=== PATIENT | male | born 1970 | race Caucasian/White ===

== ENCOUNTER 2017-01-12 01:47 | Emergency (ER) | payer SELFPAY ==
[2017-01-12] MEDS ORDERED: MIDAZOLAM 10 MG/2 ML VIAL IM ONE (02:01)
--- NOTE | 2017-01-12 02:10 | EDPHY ---
H & P Time Seen by Provider: 01/12/17 01:51 HPI/ROS: HPI The patient presents with concern for LSD intoxication. Police were called because the patient was pool side at an apartment complex making a ruckus. Upon arrival of the police, the patient was yelling, appeared altered, admitted to taking 3 hits of LSD tonight. He denies any other ingestions. He is brought in by paramedics.. REVIEW OF SYSTEMS Constitutional: No fever, no chills. Eyes: No discharge. ENT: No sore throat. Cardiovascular: No chest pain, no palpitations. Respiratory: No cough, no shortness of breath. Gastrointestinal: No abdominal pain, no vomiting. Genitourinary: No hematuria. Musculoskeletal: No back pain. Skin: No rashes. Neurological: No headache. PMHx: Denies Soc Hx: Positive for LSD use PHYSICAL General Appearance: Agitated, yelling Eyes: Pupils equal and round no pallor or injection ENT, Mouth: Mucous membranes moist Respiratory: There are no retractions, lungs are clear to auscultation Cardiovascular: Regular rate and rhythm Gastrointestinal: Abdomen is soft and non-tender, no masses, bowel sounds normal Neurological: A&O, moves all extremities Skin: Warm and dry, no rashes Musculoskeletal: Neck is supple non tender Extremities: symmetrical, full range of motion Psychiatric: Positive for agitation Source: Patient, EMS Exam Limitations: Intoxication Constitutional: Initial Vital Signs Temperature (C) 36.6 C 01/12/17 01:59 Heart Rate 79 01/12/17 01:59 Respiratory Rate 24 H 01/12/17 01:59 Blood Pressure 178/88 H 01/12/17 01:59 O2 Sat (%) 93 01/12/17 01:59 O2 Delivery Mode Room Air Allergies/Adverse Reactions: Unable to Assess Allergy (Unverified 01/12/17 01:59) Home Medications: Medication Instructions Recorded Unobtainable 01/12/17 Medical Decision Making ED Course/Re-evaluation: I met the paramedics at the bedside to obtain report. We have medicated the patient with Versed 5 mg IM with improvement in his agitation. We will continue to monitor him. The patient remained fairly calm while in the emergency room. He did require Ativan 2 mg by mouth because of increased agitation which was transient. After several hours, he was awake and alert, he could tell me his address and that he would like to go home. He he seemed to be mentating well. He did report using LSD last night. He will be discharged from the emergency room. Differential Diagnosis: This is a 45-year-old man who is brought in by ambulance for altered mental status, found beside a pool at an apartment complex. He admits to LSD use. He is currently with yelling and agitated. - Data Points Medications Given: Discontinued Medications Lorazepam (Ativan) 2 mg PO EDNOW ONE Stop: 01/12/17 05:17 Last Admin: 01/12/17 05:19 Dose: 2 mg Midazolam HCl (Versed) 5 mg IM EDNOW ONE Stop: 01/12/17 02:02 Last Admin: 01/12/17 02:02 Dose: 5 mg Olanzapine (Zyprexa Zydis) 10 mg PO EDNOW ONE Stop: 01/12/17 03:41 Last Admin: 01/12/17 03:40 Dose: 10 mg Departure - Departure Disposition: Home, Routine, Self-Care Clinical Impression: LSD reaction, Delirium Condition: Good Instructions: Polysubstance Abuse (ED) Referrals: [facility],. [Clinic] - As per Instructions
[2017-01-12] MEDS ORDERED: OLANZapine DISINTEGR 10 MG TAB ONE (03:33)
[2017-01-12] MEDS ORDERED: OLANZapine DISINTEGR 10 MG TAB PO ONE (03:40)
[2017-01-12] MEDS ORDERED: LORazepam 1 MG TAB ONE (05:13)
[2017-01-12] MEDS ORDERED: LORazepam 1 MG TAB PO ONE (05:16)
[2017-01-12] MEDS ORDERED: MIDAZOLAM 2 MG/2 ML VIAL ONE (06:17)
[2017-01-12 07:26] VITALS: BP 100/74; PULSE 99; RESP 20; TEMP 98.8; O2SAT 98
== END 2017-01-12 07:24 | disposition home or self-care (01) ==
DX: R41.0 Disorientation, unspecified (principal); T40.8X1A Poisoning by lysergide [LSD], accidental (unintentional), initial encounter
CPT/HCPCS: J2250